=== PATIENT | male | born 1985 | race Caucasian/White ===

== ENCOUNTER → 2016-06-01 | Outpatient (CLI) | payer OTHER ==
[~2016-06-01] MED LIST: MULT-506 PO; TRVHP PO
[2016-06-01 13:25] LABS: BASO % 0.4 %; BASO ABS # 0.03 K/uL (0-0.2); COMPLETE YES; EOS % 1.9 %; HEMATOCRIT 44.2 % (42-52); IG% 0.6 %; LYMPH % 41.8 %; LYMPH ABS # 3.27 K/uL (1.2-3.4); MEAN CORPUSCULAR HEMOGLOBIN 29.8 pg (25-34); MEAN CORPUSCULAR HGB CONC 35.5 g/dl (32-36); MEAN PLATELET VOLUME 11.1 fL (7.4-10.4); MONO % 8.4 %; NEUT % 46.9 %; PLATELET COUNT 198 K/uL (130-400); RED BLOOD COUNT 5.26 M/uL (4.7-6.1); WHITE BLOOD COUNT 7.83 K/uL (4.8-10.8)
[2016-06-01 13:41] LABS: ALT/SGPT 36 U/L (12-78); BLOOD UREA NITROGEN 12 mg/dl (7-18); BUN/CREATININE RATIO 12.4 (10-20); CALCIUM 9.5 mg/dl (8.5-10.1); CARBON DIOXIDE 26 mmol/L (21-32); CHLORIDE 104 mmol/L (98-107); GLUCOSE 92 mg/dl (70-99); POTASSIUM 3.7 mmol/L (3.5-5.1); SODIUM 140 mmol/L (136-145)
[2016-06-01 13:44] LABS: ALB/GLOB RATIO 1.1 (0.9-2); ALKALINE PHOSPHATASE 77 U/L (45-117); AST/SGOT 22 U/L (15-37)
== END | disposition home or self-care (01) ==
LOC: C.LABBC 10:31
PROVIDERS: ATTEND Family Medicine
DX: J02.9 Acute pharyngitis, unspecified (principal); K62.5 Hemorrhage of anus and rectum; R03.0 Elevated blood-pressure reading, without diagnosis of hypertension

== ENCOUNTER → 2016-06-19 | Outpatient (CLI) | payer OTHER | END | disposition home or self-care (01) | LOC: C.LAB1850 16:13 | PROVIDERS: ATTEND Physician Assistant Medical | DX: Z00.00 Encounter for general adult medical examination without abnormal findings (principal) ==

== ENCOUNTER → 2016-07-30 | Day surgery (SDC) | payer OTHER ==
[2016-07-23 10:28] VITALS: BMI 31.0
[~2016-07-30] VITALS: Ht 188 cm; Wt 109.1 kg
[~2016-07-30] MED LIST changes: +LIDOCAINE HCL 2% 2 ML VIAL (20MG/ML) ONE; +MIDAZOLAM HCL 1 MG/ML 2ML VIAL ONE; +PROPOFOL IV EMULSION 10 MG/ML 20 ML VIAL IV ONE; +SODIUM CHLORIDE 0.9% 500ML 500 ML IV ONE
[2016-07-30 12:31] VITALS: Ht 188 cm; Wt 109.1 kg
--- NOTE | 2016-07-30 13:00 | Endo History and Physical ---
History & Physical Date of Service: July 30, 2016. Chief Complaint: BRIGHT RED BLOOD PER RECTUM Referring Physician: ABNER MEJIA History of Present Illness 31 yo CM who presents for colonoscopy secondary to bright red blood per rectum. Past Surgical History Hx Cardiac Surgery: No Hx Internal Defibrillator: No Hx Pacemaker: No Hx Abdominal Surgery: Yes (DAVID) Hx of Implantable Prosthesis: No Hx Post-Op Nausea and Vomiting: No Hx Cancer Surgery: No Hx Thoracic Surgery: No Hx Orthopedic: Yes (LEFT ACL REPAIR, TENDON LEFT BIG TOE REPAIR, RT ARM CLOSED REDUCTION) Hx Urinary Tract Surgery: No Social History Smoking Status: Former Smoker Hx Substance Use: No (PAST USE OF MARIJUANA) Hx Alcohol Use: Yes (OCCASIONALLY) Allergies Coded Allergies: Amoxicillin (Verified Allergy, Unknown, UNSURE/?RASH, 07/30/16) Current Medications Reported Home Medications Medications Dose Route/Sig Max Daily Dose Days Date Category Multivitamin (Multivitamins) Tab 1 Tab PO QAM 07/23/16 Reported Truvada 200/300MG (Emtricitabine/Tenofovir) Tab 1 Tab PO QAM 07/23/16 Reported Vital Signs Weight (Kilograms): 109.09 Height (Feet): 6 Height (Inches): 2 Date Time Temp Pulse Resp B/P Pulse Ox O2 Delivery O2 Flow Rate FiO2 07/30/16 12:39 36.7 85 20 118/75 98 Room Air Physical Exam General Appearance: WD/WN, no apparent distress Respiratory/Chest: Auscultation: breath sounds normal Cardiovascular: Heart Auscultation: RRR Abdomen: Bowel Sounds: normal Inspection & Palpation: soft, non-distended, no tenderness, guarding & rebound Assessment and Plan Assessment: 31 yo CM who presents for colonoscopy secondary to bright red blood per rectum. Plan: Proceed with colonoscopy.
--- NOTE | 2016-07-30 14:09 | Discharge Instructions ---
Endoscopy Patient Instructions Date / Procedure(s) Performed July 30, 2016. Colonoscopy Allergy Information Coded Allergies: Amoxicillin (Verified Allergy, Unknown, UNSURE/?RASH, 07/30/16) Discharge Date / Findings July 30, 2016. Colon polyp Anal swab for STD's Medication Instructions OK to resume all medications today as prescribed Reported Home Medications Medications Dose Route/Sig Max Daily Dose Days Date Category Multivitamin (Multivitamins) Tab 1 Tab PO QAM 07/23/16 Reported Truvada 200/300MG (Emtricitabine/Tenofovir) Tab 1 Tab PO QAM 07/23/16 Reported Provider Instructions Activity Restrictions - No exercising or heavy lifting for 24 hours. - Do not drink alcohol the day of the procedure. - Do not drive a car or operate machinery until the day after the procedure. - Do not make any important decisions or sign important papers in 24 hours after the procedure. Following Day: - Return to full activity which may include returning to work/school. Diet Start your diet with liquids and light foods (jello, soup, juice, toast). Then eat your usual diet if not nauseated. Treatment For Common After Affects For mild abdominal pain, bloating, or excessive gas: - Rest - Eat lightly - Lie on right side Follow-Up Information Follow-up with ABNER MEJIA as scheduled Anesthesia Information What You Should Know You have had a procedure that required some medicine to reduce anxiety and discomfort. This treatment is called moderate sedation. After receiving the treatment, you may be sleepy, but you will be able to breathe on your own. The effects of the treatment may last for several hours. Follow these instructions along with Activity/Diet recommendations noted above: * Do NOT do anything where dizziness or clumsiness would be dangerous. * Rest quietly at home today, then you can be up and about tomorrow. * Have a responsible person stay with you the rest of today. * You may have had an I.V. today. If so, you may take the dressing off later today. Recommendations Call your doctor if: * Trouble breathing * Continuous vomiting for more than 24 hours * Temperature above 101 degrees * Severe abdominal pain or bloating * Pain not relieved by pain medicine ordered * There is increased drainage or redness from any incision * A large amount of rectal bleeding greater than 2-3 tablespoons. (If you had a polyp/s removed or have hemorrhoids, a small amount of blood - from the rectum is to be expected.) * You have any unanswered questions or concerns. IN THE EVENT OF A SERIOUS EMERGENCY, GO TO THE NEAREST EMERGENCY ROOM Your discharge instructions were prepared by provider Ismael Marques. Patient Instructions Signature Page Eduardo Alvarez Patient (or Guardian) Signature/Date: I have read and understand the instructions given to me by my caregivers. Caregiver/RN/Doctor Signature/Date: The above-named patient and/or guardian has received patient instructions on this date. + Original Patient Signature Page (only) stays with chart. Please make copy for patient.
--- NOTE | 2016-07-30 14:13 | GI REPORT ---
Procedure Date: 07/30/2016 1:27 PM Procedure: Colonoscopy Indications: Rectal bleeding Medicines: Monitored Anesthesia Care Complications: No immediate complications. Estimated Blood Loss: Estimated blood loss: none. Procedure: Pre-Anesthesia Assessment: - Prior to the procedure, a History and Physical was performed, and patient medications and allergies were reviewed. The patient's tolerance of previous anesthesia was also reviewed. The risks and benefits of the procedure and the sedation options and risks were discussed with the patient. All questions were answered, and informed consent was obtained. Prior Anticoagulants: The patient has taken no previous anticoagulant or antiplatelet agents. ASA Grade Assessment: II - A patient with mild systemic disease. After reviewing the risks and benefits, the patient was deemed in satisfactory condition to undergo the procedure. After I obtained informed consent, the scope was passed under direct vision. Throughout the procedure, the patient's blood pressure, pulse, and oxygen saturations were monitored continuously. The scope was introduced through the anus and advanced to the terminal ileum. The colonoscopy was performed without difficulty. The patient tolerated the procedure well. The quality of the bowel preparation was good. The terminal ileum, ileocecal valve, appendiceal orifice, and rectum were photographed. Findings: A 3 mm polyp was found in the transverse colon. The polyp was sessile. The polyp was removed with a cold snare. Resection and retrieval were complete. Anal Swab performed for STD's prior to insertion of scope. Impression: - One 3 mm polyp in the transverse colon, removed with a cold snare. Resected and retrieved. Recommendation: - Resume previous diet. - Continue present medications. - Repeat colonoscopy for surveillance based on pathology results. - Return to primary care physician as previously scheduled. Ismael Marques DO 07/30/2016 2:13:33 PM This report has been signed electronically. Note Initiated On: 07/30/2016 1:27 PM I attest to the content of the Intraoperative Record and orders documented therein, exceptions below
[2016-07-30 14:31] VITALS: BP 127/82; PULSE 62; O2SAT 97
--- NOTE | 2016-07-30 16:00 | Anesthesiology Progress Note ---
Anesthesia Post Op Note Date & Time July 30, 2016 at 16:00 Vital Signs Pain Intensity: 0 Vital Signs Past 12 Hours Date Time Temp Pulse Resp B/P Pulse Ox O2 Delivery O2 Flow Rate FiO2 07/30/16 14:31 62 20 127/82 97 Room Air 07/30/16 14:16 67 20 136/76 98 Room Air 07/30/16 14:01 62 20 95/48 95 Room Air 07/30/16 12:39 36.7 85 20 118/75 98 Room Air Notes Mental Status: alert / awake / arousable, participated in evaluation Pt Amnestic to Procedure: Yes Nausea / Vomiting: adequately controlled Pain: adequately controlled Airway Patency, RR, SpO2: stable & adequate BP & HR: stable & adequate Hydration State: stable & adequate Anesthetic Complications: no major complications apparent
== END | disposition home or self-care (01) ==
LOC: C.GI 12:19
PROVIDERS: ATTEND Internal Medicine
DX: K62.5 Hemorrhage of anus and rectum (principal); D12.3 Benign neoplasm of transverse colon; Z87.891 Personal history of nicotine dependence

== ENCOUNTER → 2016-09-14 | Day surgery (SDC) | payer OTHER ==
[2016-07-23 10:40] VITALS: Ht 188 cm; Wt 109.1 kg
[~2016-09-14] VITALS: Ht 188 cm; Wt 109.1 kg
[~2016-09-14] MED LIST changes: +FENTANYL CITRATE INJ 50 MCG/1 ML 2 ML VIAL ONE; -MIDAZOLAM HCL 1 MG/ML 2ML VIAL ONE
--- NOTE | 2016-09-14 12:28 | Endo History and Physical ---
History & Physical Date of Service: Sep 14, 2016. Chief Complaint: Acid reflux Referring Physician: Dr. Manjeet Ansari History of Present Illness 31 yo CM who presents for EGD secondary to GERD. Past Surgical History Hx Cardiac Surgery: No Hx Internal Defibrillator: No Hx Pacemaker: No Hx Abdominal Surgery: Yes (DAVID) Hx of Implantable Prosthesis: No Hx Post-Op Nausea and Vomiting: No Hx Cancer Surgery: No Hx Thoracic Surgery: No Hx Orthopedic: Yes (LEFT ACL REPAIR, TENDON LEFT BIG TOE REPAIR, RT ARM CLOSED REDUCTION) Hx Urinary Tract Surgery: No Family History None Social History Smoking Status: Former Smoker Hx Substance Use: No (PAST USE OF MARIJUANA) Hx Alcohol Use: Yes (OCCASIONALLY) Allergies Coded Allergies: Amoxicillin (Verified Allergy, Unknown, UNSURE/?RASH, 07/30/16) Current Medications Reported Home Medications Medications Dose Route/Sig Max Daily Dose Days Date Category Multivitamin (Multivitamins) Tab 1 Tab PO QAM 07/23/16 Reported Truvada 200/300MG (Emtricitabine/Tenofovir) Tab 1 Tab PO QAM 07/23/16 Reported Vital Signs Weight (Kilograms): 109.09 Height (Feet): 6 Height (Inches): 2 Date Time Temp Pulse Resp B/P (MAP) Pulse Ox O2 Delivery O2 Flow Rate FiO2 09/14/16 11:50 37 66 20 150/76 (100) 95 Room Air Physical Exam General Appearance: WD/WN, no apparent distress Respiratory/Chest: Auscultation: breath sounds normal Cardiovascular: Heart Auscultation: RRR Abdomen: Bowel Sounds: normal Inspection & Palpation: soft, non-distended, no tenderness, guarding & rebound Assessment and Plan Assessment: 31 yo CM who presents for EGD secondary to GERD. Plan: Proceed with colonoscopy.
--- NOTE | 2016-09-14 12:52 | GI REPORT ---
Procedure Date: 09/14/2016 12:16 PM Procedure: Upper GI endoscopy Indications: Suspected gastro-esophageal reflux disease Medicines: Monitored Anesthesia Care Complications: No immediate complications. Estimated Blood Loss: Estimated blood loss: none. Procedure: Pre-Anesthesia Assessment: - Prior to the procedure, a History and Physical was performed, and patient medications and allergies were reviewed. The patient's tolerance of previous anesthesia was also reviewed. The risks and benefits of the procedure and the sedation options and risks were discussed with the patient. All questions were answered, and informed consent was obtained. Prior Anticoagulants: The patient has taken no previous anticoagulant or antiplatelet agents. ASA Grade Assessment: II - A patient with mild systemic disease. After reviewing the risks and benefits, the patient was deemed in satisfactory condition to undergo the procedure. After obtaining informed consent, the endoscope was passed under direct vision. Throughout the procedure, the patient's blood pressure, pulse, and oxygen saturations were monitored continuously. The scope was introduced through the mouth, and advanced to the second part of duodenum. The upper GI endoscopy was accomplished without difficulty. The patient tolerated the procedure well. Findings: The esophagus was normal. Localized mild inflammation characterized by erythema was found in the gastric antrum. Biopsies were taken with a cold forceps for histology. The examined duodenum was normal. Impression: - Normal esophagus. - Gastritis. Biopsied. - Normal examined duodenum. Recommendation: - Resume previous diet. - Continue present medications. - Await pathology results. - Return to primary care physician as previously scheduled. Ismael Marques, 09/14/2016 12:52:01 PM This report has been signed electronically. Note Initiated On: 09/14/2016 12:16 PM I attest to the content of the Intraoperative Record and orders documented therein, exceptions below
--- NOTE | 2016-09-14 12:54 | Discharge Instructions ---
Endoscopy Patient Instructions Date / Procedure(s) Performed Sep 14, 2016. EGD Allergy Information Coded Allergies: Amoxicillin (Verified Allergy, Unknown, UNSURE/?RASH, 07/30/16) Discharge Date / Findings Sep 14, 2016. Gastritis s/p biopsies Throat swab at patient request Medication Instructions OK to resume all medications today as prescribed Reported Home Medications Medications Dose Route/Sig Max Daily Dose Days Date Category Multivitamin (Multivitamins) Tab 1 Tab PO QAM 07/23/16 Reported Truvada 200/300MG (Emtricitabine/Tenofovir) Tab 1 Tab PO QAM 07/23/16 Reported Provider Instructions Activity Restrictions - No exercising or heavy lifting for 24 hours. - Do not drink alcohol the day of the procedure. - Do not drive a car or operate machinery until the day after the procedure. - Do not make any important decisions or sign important papers in 24 hours after the procedure. Following Day: - Return to full activity which may include returning to work/school. Diet Start your diet with liquids and light foods (jello, soup, juice, toast). Then eat your usual diet if not nauseated. Treatment For Common After Affects For mild abdominal pain, bloating, or excessive gas: - Rest - Eat lightly - Lie on right side Follow-Up Information Follow-up with Dr. Manjeet Ansari as scheduled Anesthesia Information What You Should Know You have had a procedure that required some medicine to reduce anxiety and discomfort. This treatment is called moderate sedation. After receiving the treatment, you may be sleepy, but you will be able to breathe on your own. The effects of the treatment may last for several hours. Follow these instructions along with Activity/Diet recommendations noted above: * Do NOT do anything where dizziness or clumsiness would be dangerous. * Rest quietly at home today, then you can be up and about tomorrow. * Have a responsible person stay with you the rest of today. * You may have had an I.V. today. If so, you may take the dressing off later today. Recommendations Call your doctor if: * Trouble breathing * Continuous vomiting for more than 24 hours * Temperature above 101 degrees * Severe abdominal pain or bloating * Pain not relieved by pain medicine ordered * There is increased drainage or redness from any incision * A large amount of rectal bleeding greater than 2-3 tablespoons. (If you had a polyp/s removed or have hemorrhoids, a small amount of blood - from the rectum is to be expected.) * You have any unanswered questions or concerns. IN THE EVENT OF A SERIOUS EMERGENCY, GO TO THE NEAREST EMERGENCY ROOM Your discharge instructions were prepared by provider Ismael Marques. Patient Instructions Signature Page Eduardo Alvarez Patient (or Guardian) Signature/Date: I have read and understand the instructions given to me by my caregivers. Caregiver/RN/Doctor Signature/Date: The above-named patient and/or guardian has received patient instructions on this date. + Original Patient Signature Page (only) stays with chart. Please make copy for patient.
[2016-09-14 13:11] VITALS: PULSE 60; O2SAT 96
[2016-09-14 13:14] VITALS: BP 129/87
--- NOTE | 2016-09-14 13:21 | Anesthesiology Progress Note ---
Anesthesia Post Op Note Date & Time Sep 14, 2016 at 13:21 Vital Signs Pain Intensity: 0 Vital Signs Past 12 Hours Date Time Temp Pulse Resp B/P (MAP) Pulse Ox O2 Delivery O2 Flow Rate FiO2 09/14/16 13:14 129/87 (101) 09/14/16 13:11 60 16 128/92 (104) 96 Room Air 09/14/16 12:56 65 16 125/90 (102) 96 Room Air 09/14/16 12:41 66 16 127/66 (86) 96 Room Air 09/14/16 11:50 37 66 20 150/76 (100) 95 Room Air Notes Mental Status: alert / awake / arousable, participated in evaluation Pt Amnestic to Procedure: Yes Nausea / Vomiting: adequately controlled Pain: adequately controlled Airway Patency, RR, SpO2: stable & adequate BP & HR: stable & adequate Hydration State: stable & adequate Anesthetic Complications: no major complications apparent
[2016-10-17 07:56] LABS: HERPES SIMPLEX CULT SOURCE RESPIRATORY-THROAT; HERPES SIMPLEX VIRUS CULT NOT ISOLATED (NOT ISOLATED)
== END | disposition home or self-care (01) ==
LOC: C.GI 11:27
PROVIDERS: ATTEND Internal Medicine
DX: K21.9 Gastro-esophageal reflux disease without esophagitis (principal); K29.70 Gastritis, unspecified, without bleeding; I10 Essential (primary) hypertension; Z88.1 Allergy status to other antibiotic agents; Z98.890 Other specified postprocedural states; Z68.31 Body mass index [BMI] 31.0-31.9, adult

== ENCOUNTER → 2016-09-21 | Outpatient (CLI) | payer OTHER ==
[~2016-09-21] MED LIST changes: -FENTANYL CITRATE INJ 50 MCG/1 ML 2 ML VIAL ONE; -LIDOCAINE HCL 2% 2 ML VIAL (20MG/ML) ONE; -PROPOFOL IV EMULSION 10 MG/ML 20 ML VIAL IV ONE; -SODIUM CHLORIDE 0.9% 500ML 500 ML IV ONE
[2016-09-21 18:50] LABS: BLOOD UREA NITROGEN 17 mg/dl (7-18); BUN/CREATININE RATIO 15.7 (10-20); CALCIUM 9.4 mg/dl (8.5-10.1); CARBON DIOXIDE 29 mmol/L (21-32); CHLORIDE 103 mmol/L (98-107); GLUCOSE 82 mg/dl (70-99); POTASSIUM 3.8 mmol/L (3.5-5.1); SODIUM 139 mmol/L (136-145)
[2016-09-25 00:48] LABS: CHLAMYDIA TRACH RNA*** NOT DETECTED (NOT DETECTED); GC (NEIS GONORRHOEAE)RNA** NOT DETECTED (NOT DETECTED)
[2016-09-28 20:27] LABS: HERPES SIMPLEX AB IGG-2 < 0.90 INDEX (< 0.90); HSV1 AB IGM Negative (Negative); HSV2 AB IGM Negative (Negative)
== END | disposition home or self-care (01) ==
LOC: C.LAB 17:26
PROVIDERS: ATTEND Physician Assistant
DX: Z29.9 Encounter for prophylactic measures, unspecified (principal); Z20.6 Contact with and (suspected) exposure to human immunodeficiency virus [HIV]

== ENCOUNTER → 2016-10-31 | Outpatient (CLI) | payer OTHER | END | disposition home or self-care (01) | LOC: C.PATHSPEC 17:36 | PROVIDERS: ATTEND Dermatology | DX: D22.5 Melanocytic nevi of trunk (principal) ==

== ENCOUNTER → 2016-12-19 | Outpatient (CLI) | payer OTHER ==
[2016-12-21 00:55] LABS: CHLAMYDIA TRACH RNA*** NOT DETECTED (NOT DETECTED); GC (NEIS GONORRHOEAE)RNA** NOT DETECTED (NOT DETECTED); HERPES SIMPLEX AB IGG-2 < 0.90 INDEX (< 0.90)
== END | disposition home or self-care (01) ==
LOC: C.LAB1850 08:56
PROVIDERS: ATTEND Internal Medicine Infectious Disease
DX: Z20.6 Contact with and (suspected) exposure to human immunodeficiency virus [HIV] (principal)

== ENCOUNTER → 2017-07-23 | Outpatient (CLI) | payer BC ==
[2017-07-23 16:42] LABS: BASO % 0.7 %; BASO ABS # 0.04 K/uL (0-0.2); EOS % 3.4 %; HEMATOCRIT 44.5 % (42-52); HEMOGLOBIN 15.4 g/dL (14.0-18.0); IG# 0.02 K/uL (0.00-0.02); LYMPH % 39.9 %; LYMPH ABS # 2.36 K/uL (1.2-3.4); MEAN CELL VOLUME 85.6 fL (80-100); MEAN CORPUSCULAR HEMOGLOBIN 29.6 pg (25-34); MEAN CORPUSCULAR HGB CONC 34.6 g/dl (32-36); MEAN PLATELET VOLUME 10.4 fL (7.4-10.4); MONO % 8.1 %; MONO ABS # 0.48 K/uL (0.11-0.59); NEUT % 47.6 %; NEUT ABS # 2.82 K/uL (1.4-6.5); PLATELET COUNT 211 K/uL (130-400); RED CELL DISTRIBUTION WIDTH CV 12.9 % (11.5-14.5); RED CELL DISTRIBUTION WIDTH SD 40.4 fL (36.4-46.3); WHITE BLOOD COUNT 5.92 K/uL (4.8-10.8)
[2017-07-23 17:16] LABS: ALBUMIN 4.6 gm/dl (3.4-5.0); ALT/SGPT 50 U/L (12-78); AST/SGOT 29 U/L (15-37); BLOOD UREA NITROGEN 16 mg/dl (7-18); CALCIUM 9.1 mg/dl (8.5-10.1); CARBON DIOXIDE 26 mmol/L (21-32); CREATININE 1.36 mg/dl (0.60-1.40); GLUCOSE 80 mg/dl (70-99); POTASSIUM 3.9 mmol/L (3.5-5.1); SODIUM 139 mmol/L (136-145)
[2017-07-23 17:19] LABS: ALKALINE PHOSPHATASE 85 U/L (45-117); TOTAL PROTEIN 8.1 gm/dl (6.4-8.2)
== END | disposition home or self-care (01) ==
LOC: C.LAB1850 16:00
PROVIDERS: ATTEND Neuromusculoskeletal Medicine & OMM
DX: Z29.9 Encounter for prophylactic measures, unspecified (principal); Z20.6 Contact with and (suspected) exposure to human immunodeficiency virus [HIV]